=== PATIENT | male | born 1980 | race Caucasian/White ===

== ENCOUNTER 2023-11-11 16:11 | Emergency (ER) | payer MEDICAID ==
[~2023-11-11] VITALS: Ht 172.7 cm; Wt 81.6 kg
[2023-11-11] MEDS ORDERED: LORazepam 2 MG/ML VIAL ONE (16:33)
[2023-11-11] MEDS ORDERED: HALOPERIDOL IM 5 MG/ML VIAL ONE (16:33)
[2023-11-11] MEDS ORDERED: HALOPERIDOL IM 5 MG/ML VIAL IM ONE (16:40)
[2023-11-11] MEDS ORDERED: LORazepam 2 MG/ML VIAL IM ONE (16:40)
[2023-11-11 16:42] VITALS: BP 132/92; PULSE 91; RESP 14; TEMP 98.6; O2SAT 95
[2023-11-11 16:52] LABS: BASOPHILS # (AUTO) 0.1 K/uL (0.00-0.22); BASOPHILS % (AUTO) 0.9 % (0.0-2.0); EOSINOPHILS # (AUTO) 0.1 K/uL (0-0.4); EOSINOPHILS % (AUTO) 1.2 % (0.0-4.0); HEMATOCRIT 43.8 % (36-52); HEMOGLOBIN 15.2 g/dL (12.0-18.0); LYMPHOCYTES # (AUTO) 3.8 K/uL (2.0-11.5); LYMPHOCYTES % (AUTO) 31.5 % (20.5-51.1); MEAN CORPUSCULAR HEMOGLOBIN 30 pg (27-31); MEAN CORPUSCULAR HGB CONC 35 g/dL (33-37); MONOCYTES # (AUTO) 0.7 K/uL (0.8-1.0); MONOCYTES % (AUTO) 5.6 % (1.7-9.3); NEUTROPHILS # (AUTO) 7.4 K/uL (1.8-7.7); NEUTROPHILS % (AUTO) 60.8 % (42.2-75.2); PLATELET COUNT (AUTO) 108 K/uL (140-450); RED BLOOD CELL COUNT(AUTO) 5.09 MIL/uL (4.20-6.10); RED CELL DISTRIBUTION WIDTH 13.9 % (11.6-13.7); WHITE BLOOD COUNT (AUTO) 12.1 K/uL (4.8-10.8)
[2023-11-11] MEDS ORDERED: ZIPRASIDONE MESYLATE 20 MG/ML VIAL IM ONE ×2 (17:09→17:10)
[2023-11-11 17:10] LABS: CALCIUM 9.2 mg/dL (8.5-10.1); CARBON DIOXIDE 23.4 mmol/L (21-32); CREATININE 0.7 mg/dL (0.6-1.3); POTASSIUM 3.4 mmol/L (3.5-5.1)
[2023-11-11 17:20] LABS: ALCOHOL, BLOOD 216 mg/dL (<10); CREATINE KINASE, TOTAL 134 U/L (39-308); SALICYLATE 4.3 mg/dL (2.8-20.0)
[2023-11-11 17:23] LABS: ACETAMINOPHEN < 0.5 ug/ml (10-30)
[2023-11-11 18:03] LABS: APPEARANCE,URINE CLEAR (CLEAR); BILIRUBIN,URINE NEGATIVE (NEGATIVE); BLOOD, URINE NEGATIVE (NEGATIVE); COLOR,URINE YELLOW (YELLOW); LEUKOCYTE ESTERASE ,URINE NEGATIVE (NEGATIVE); NITRITE, URINE NEGATIVE (NEGATIVE); PROTEIN,URINE 1+ (NEGATIVE); UGLUCOSE 1+ (NEGATIVE); UROBILINOGEN,URINE 0.2 EU/dL (0.2 - 1)
[2023-11-11 18:15] LABS: AMPHETAMINE, URINE NEGATIVE ng/ml (NEG <=1000); BARBITURATE, URINE NEGATIVE ng/ml (NEG <=200); BENZODIAZEPINE, URINE NEGATIVE ng/mL (NEG <=200); CANNABINOID, URINE NEGATIVE ng/mL (NEG <=50); COCAINE, URINE NEGATIVE ng/mL (NEG <=300); OPIATE, URINE NEGATIVE ng/mL (NEG <=2000); PHENCYCLIDINE SCREEN,URINE NEGATIVE ng/mL (NEG <=25)
[2023-11-11 18:16] LABS: BACTERIA,URINE None Seen /HPF (None Seen); MUCUS,URINE 1+ /LPF (None Seen); RBC,URINE 0-5 /HPF (0-5); SQUAMOUS EPITHELIAL CELL,UR 0-3 (FEW) /LPF (0-3 (FEW)); TRICHOMONAS,URINE None Seen /HPF (None Seen); WBC,URINE 0-5 /HPF (0-5); YEAST,URINE None Seen /HPF (None Seen)
[2023-11-12] MEDS ORDERED: LORazepam 2 MG/ML VIAL IM ONE (06:25)
[2023-11-12] MEDS: NICOTINE TRANSD SYS 21 MG/24 HR PATCH TD SCH (11:46)
[2023-11-12 20:07] VITALS: O2SAT 98
[2023-11-12 22:52] VITALS: O2SAT 98
[2023-11-13 01:31] VITALS: O2SAT 98
[2023-11-13 04:14] VITALS: O2SAT 98
[2023-11-13 07:25] VITALS: O2SAT 98
[2023-11-13] MEDS: NICOTINE TRANSD SYS 21 MG/24 HR PATCH TD SCH (14:09)
[2023-11-13 19:45] VITALS: O2SAT 98
[2023-11-14 00:06] VITALS: O2SAT 98
[2023-11-14 03:01] VITALS: O2SAT 98
[2023-11-14 05:18] VITALS: O2SAT 98
[2023-11-14 07:31] VITALS: O2SAT 98
[2023-11-14] MEDS ORDERED: NICOTINE TRANSD SYS 14 MG/24 HR PATCH TD ONE (09:06)
[2023-11-14] MEDS: NICOTINE TRANSD SYS 21 MG/24 HR PATCH TD SCH (09:07)
[2023-11-14 09:33] VITALS: O2SAT 98
[2023-11-14 11:30] VITALS: BP 148/81; PULSE 74; RESP 17; TEMP 98.1; O2SAT 98
== END 2023-11-14 11:30 | disposition home or self-care (01) ==
LOC: MED 16:11
DX: S02.2XXA Fracture of nasal bones, initial encounter for closed fracture (principal); S51.812A Laceration without foreign body of left forearm, initial encounter; S51.811A Laceration without foreign body of right forearm, initial encounter; F22 Delusional disorders; R45.88 Nonsuicidal self-harm; Z20.822 Contact with and (suspected) exposure to COVID-19; F32.9 Major depressive disorder, single episode, unspecified; F10.129 Alcohol abuse with intoxication, unspecified
CPT/HCPCS: 36415; 70450; 71045; 80048; 80305; 81001; 82550; 84484; 85025; 87426; 93005; 96372; 99291; G0480; G0482; J1630; J2060; J3486